=== PATIENT | male | born 1985 | race Caucasian/White ===

== ENCOUNTER 2019-07-23 14:52 | Emergency (ER) | payer SELFPAY ==
[~2019-07-23] VITALS: Ht 167.6 cm; Wt 61.7 kg
[2019-07-23 14:55] VITALS: BP 123/91
--- NOTE | 2019-07-23 15:02 | NUR ---
PD # [id number] AT BEDSIDE
[2019-07-23] MEDS ORDERED: IBUPROFEN 400 MG TAB PO ONE (15:05)
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
[2019-07-23 15:52] VITALS: BP 118/85
== END 2019-07-23 15:49 ==
LOC: MED 14:52
DX: S46.911A Strain of unspecified muscle, fascia and tendon at shoulder and upper arm level, right arm, initial encounter (principal); S00.81XA Abrasion of other part of head, initial encounter; F31.9 Bipolar disorder, unspecified; Z91.013 Allergy to seafood; Z02.89 Encounter for other administrative examinations; X58.XXXA Exposure to other specified factors, initial encounter; Y93.89 Activity, other specified; Y92.89 Other specified places as the place of occurrence of the external cause; Y99.8 Other external cause status
CPT/HCPCS: 73030; 99283; Q0092